=== PATIENT | female | born 1990 | race Caucasian/White ===

== ENCOUNTER 2019-12-27 14:35 | Emergency (ER) | payer MEDICAID ==
[~2019-12-27] VITALS: Ht 152.4 cm; Wt 53.5 kg
[2019-12-27 14:37] VITALS: Ht 152.4 cm; Wt 53.5 kg
[2019-12-27 15:36] VITALS: BP 122/77
== END 2019-12-27 15:36 | disposition home or self-care (01) ==
LOC: ED 14:35
DX: B34.9 Viral infection, unspecified (principal); Z20.828 Contact with and (suspected) exposure to other viral communicable diseases
CPT/HCPCS: U0002